=== PATIENT | male | born 1940 | race Caucasian/White ===

== ENCOUNTER → 2016-04-09 13:12 | Outpatient (CLI) | payer MEDICARE, OTHER ==
[2016-03-01 06:15] VITALS: BMI 24.3
[~2016-04-09 13:12] MED LIST: ACTOS30 MG PO; BAYER CHEWABLE81 MG PO; GLUCOPHAGE850 MG PO; GLUCOTROL XL 1010 MG PO; HYDROCODONE-APA1 TAB PO; JANUVIA100 MG PO; LISINOPRIL5 MG PO
== END | disposition home or self-care (01) ==
LOC: D.MRI 13:12
DX: M25.521 Pain in right elbow (principal)

== ENCOUNTER 2016-05-20 05:17 | Day surgery (SDC) | payer MEDICARE, OTHER ==
[2016-05-19 13:09] LABS: HEMOGLOBIN 14.4 g/dL (13.5-17.5); MCH 28.1 pg (26.0-34.0); MCHC 33.5 g/dL (31.0-37.0); MEAN PLATELET VOLUME 12.6 fL (7.4-10.4); RBC 5.12 10x6/uL (4.20-6.10); RDW 15.1 % (11.5-14.5); WBC 8.3 10x3/uL (4.8-10.8)
[2016-05-19 13:27] LABS: CALC OSMOLALITY 281 mosm/kg (275-300); CALCIUM 9.2 mg/dL (8.5-10.1); CARBON DIOXIDE 27.8 mmol/L (21.0-32.0); CHLORIDE - SERUM 103 mmol/L (98-107); CREATININE - SERUM 0.9 mg/dL (0.6-1.3); GLUCOSE 138 mg/dL (74-106); POTASSIUM - SERUM 4.9 mmol/L (3.5-5.1); SODIUM 139 mmol/L (136-145); UREA NITROGEN 17 mg/dL (7-18); eGFR NON AFRICAN AMERICAN 87 mL/min (90-120)
[~2016-05-20] VITALS: Ht 185.4 cm; Wt 86.2 kg
[2016-05-20 06:25] VITALS: BP 149/69; Ht 185.4 cm; Wt 86.2 kg
[2016-05-20] MEDS ORDERED: HYDROCODONE-APA1 TAB PO (08:56)
--- NOTE | 2016-05-20 14:23 | NUR ---
1100 IV DC WITH CATHER TIP INTACT
--- NOTE | 2016-05-20 14:36 | NUR ---
1100 STATED WILL GO HOME AND CHECK BP AND TAKE MEDICINE,
--- NOTE | 2016-05-24 11:07 | OP ---
PATIENT NAME: DONATO ANGULO MEDICAL RECORD: [id number] :42 LOCATION:[facility] ADMISSION DATE: SURGEON: DANN VERA MD DATE OF OPERATION: 05/20/2016 PREOPERATIVE DIAGNOSIS: Loose body of the right elbow. POSTOPERATIVE DIAGNOSIS: Loose body of the right elbow. PROCEDURES: Elbow arthrotomy with removal of loose bodies as well as impinging osteophytes. OPERATIVE SUMMARY IN DETAIL: After obtaining the appropriate preoperative orthopedic surgery consent as well as anesthetic consultation, evaluation and clearance, the patient was brought to the operating room and placed on the operating table in supine position. After general laryngeal mask airway was administered, tourniquet was placed about the proximal aspect of the right upper extremity. Right upper extremity was then prepped and draped in a routine sterile fashion. The arm was elevated and exsanguinated, tourniquet inflated to 250 mmHg. A posterior lateral incision was made just lateral to the tricipital insertion. Dissection was carried down to the olecranon fossa. Capsulotomy was performed and under direct visualization, the loose body that was seen on the MRI was removed; however, at this point, the patient still had a "hard block" and then further dissection was carried out. It showed the patient to have a prominent osteophytic tip of the olecranon. At this point, C-arm was brought in to evaluate this under AP and lateral planes and it did show that the prominent osteophytic tip of the olecranon was impinging in the superior aspect of the olecranon fossa. Osteotome was used to gently take down the large prominent osteophyte at the posterior tip of the olecranon as well as taken down osteophytes of the medial and lateral aspect of the olecranon fossa. Having completed this, the wound was copiously irrigated. Again, fluoroscopy was brought in to ensure that the bony blocks had all been removed. At this point, the patient's elbow was extended and he no longer had a hard block with more of a soft tissue block anteriorly. Having completed this, the wound was again copiously irrigated. Capsule and triceps were closed with #1 Vicryl followed by 2-0 Vicryl and 4-0 Prolene in running fashion. Sterile dressings were applied. Tourniquet was deflated. The patient was awakened and taken to the recovery room in stable condition. All final needle and sponge counts were correct. TRANSINT:[id number] Voice Confirmation ID: [id number] DOCUMENT ID: [id number] CHUY BRIDGES, DANN SOLIS at 1107 CC: [id number] DICTATION DATE: 05/20/16 1058 IT RISK ADVISOR: 05/20/16 1300 [facility] [place] 05/20/16 [place] [id number] [place] [id number]
== END 2016-05-20 11:15 | disposition home or self-care (01) ==
LOC: D.OPS 05:17 → D.PAN 07:30 → D.OPS 08:00 → D.PAN 08:00 → D.OPS 11:15
PROVIDERS: Anesthesiology
DX: M24.021 Loose body in right elbow (principal); M25.721 Osteophyte, right elbow

== ENCOUNTER 2016-10-15 06:01 | Day surgery (SDC) | payer MEDICARE, OTHER ==
[2016-10-14 14:25] LABS: HEMOGLOBIN 13.4 g/dL (13.5-17.5); MCH 28.8 pg (26.0-34.0); MCHC 33.5 g/dL (31.0-37.0); MCV 85.8 fL (80.0-100.0); MEAN PLATELET VOLUME 11.9 fL (7.4-10.4); RBC 4.66 10x6/uL (4.20-6.10); RDW 14.6 % (11.5-14.5)
[2016-10-14 14:42] LABS: ANION GAP 16.4 mmol/L (8-16); CALCIUM 9.4 mg/dL (8.5-10.1); CARBON DIOXIDE 23.8 mmol/L (21.0-32.0); CREATININE - SERUM 1.1 mg/dL (0.6-1.3); POTASSIUM - SERUM 5.2 mmol/L (3.5-5.1)
[~2016-10-15] VITALS: Ht 185.4 cm; Wt 83.5 kg
[~2016-10-15 06:01] MED LIST changes: +BACTRIM DS TABL1 TAB PO; +CORTISPORIN OTI10 M1 RIGHT EAR
[2016-10-15 10:54] VITALS: BP 160/72; Ht 185.4 cm; Wt 83.5 kg
--- NOTE | 2016-10-15 14:42 | NUR ---
1430-ESCORTED VIA WHEELCHAIR TO PERSONAL CAR, LEFT WITH PIER HAND DRIVING.
== END 2016-10-15 14:30 | disposition home or self-care (01) ==
LOC: D.OPS 06:01 → D.PAN 12:00 → D.OPS 14:30
PROVIDERS: Anesthesiology
DX: R97.20 Elevated prostate specific antigen [PSA] (principal); Z79.2 Long term (current) use of antibiotics; Z01.812 Encounter for preprocedural laboratory examination